=== PATIENT | female | born 1980 | race Caucasian/White ===

== ENCOUNTER 2017-04-26 18:44 | Inpatient (IN) | payer MEDICAID, OTHER ==
[~2017-04-26] VITALS: Ht 157.5 cm; Wt 95.0 kg
[~2017-04-26 18:44] MED LIST: CEPH500C2; HYDR-3927; IBUP-2029; NORE1TAB99; SULF-288
[2017-04-27] MEDS ORDERED: LABETALOL 5MG/ML SYR 20 MG/4 ML SYRINGE IV ONE (00:30)
[2017-04-27] MEDS ORDERED: MAGNESIUM 2 G PREMIX 50 ML IV ONE (00:30)
[2017-04-27 00:44] LABS: BASOPHILS % 0.6 % (0.0-2.0); EOSINOPHILS % 0.3 % (0.0-5.0); HEMATOCRIT. 34.8 % (36.0-48.0); HEMOGLOBIN. 11.9 g/dL (12.0-16.0); LYMPHOCYTES % 22.1 % (20.0-50.0); MEAN CORPUSCULAR HEMOGLOBIN 27.6 pg (28.0-32.0); MEAN CORPUSCULAR VOLUME 80.8 fL (81.0-99.0); MEAN PLATELET VOLUME 8.2 fl (7.4-10.4); MONOCYTES % 6.6 % (2.0-8.0); NEUTROPHILS % 70.4 % (40.0-76.0); PLATELET 278 x1000/uL (130-400); RED BLOOD CELL COUNT 4.31 mill/uL (4.2-5.4); RED CELL DISTRIBUTION WIDTH 14.6 % (11.6-14.6)
[2017-04-27 00:54] LABS: CHLORIDE 103 mEq/L (98-107)
[2017-04-27 01:04] LABS: CARBON DIOXIDE 25 mEq/L (21-32)
[2017-04-27 01:59] LABS: CLARITY URINE CLEAR (CLEAR); COLOR URINE YELLOW (YELLOW); GLUCOSE URINE NEGATIVE (NEGATIVE); KETONES URINE 3+ (NEGATIVE); LEUKOCYTE ESTERASE URINE NEGATIVE (NEGATIVE); NITRITE URINE NEGATIVE (NEGATIVE); OCCULT BLOOD URINE 1+ (NEGATIVE); PROTEIN URINE 1+ (NEGATIVE); SPECIFIC GRAVITY URINE 1.024 (1.005-1.030)
[2017-04-27] MEDS ORDERED: ACETAMINOPHEN 500MG TABLET PO ONE (06:15)
[2017-04-27] MEDS ORDERED: ACETAMINOPHEN 650MG/20.3ML UDC GT PRN (08:00)
[2017-04-27] MEDS ORDERED: ACETAMINOPHEN 650MG SUPP PR PRN (08:00)
[2017-04-27] MEDS ORDERED: IPRATROPIUM/ALBUTEROL 0.5-3(2.5)MG/3ML NEB INH PRN (08:00)
[2017-04-27] MEDS ORDERED: ONDANSETRON HCL 4MG/2ML VIAL IV PRN (08:00)
[2017-04-27] MEDS ORDERED: LABETALOL HCL 200MG TABLET PO SCH (09:30)
[2017-04-27 10:30] VITALS: BP 198/108
[2017-04-27] MEDS ORDERED: METHYLDOPA 250MG TABLET PO SCH (10:30)
[2017-04-27 11:32] VITALS: BP 159/85
[2017-04-27 11:52] LABS: *AMPHETAMINES SCREEN URINE NEGATIVE (NEGATIVE); *BARBITURATES SCREEN URINE NEGATIVE (NEGATIVE); *BENZODIAZEPINES SCREEN URINE NEGATIVE (NEGATIVE); *COCAINE SCREEN URINE NEGATIVE (NEGATIVE); CANNABINOID URINE SCREEN NEGATIVE (NEGATIVE); METHADONE URINE SCREEN NEGATIVE (NEGATIVE); OPIATES URINE SCREEN NEGATIVE (NEGATIVE); PHENCYCLIDINE URINE SCREEN NEGATIVE (NEGATIVE)
[2017-04-27 12:30] VITALS: BP 152/86
[2017-04-27] MEDS ORDERED: HYDRALAZINE HCL 50MG TABLET PO SCH (14:00)
[2017-04-27] MEDS: SODIUM CHLORIDE 0.9% INJ 3ML FLUSH IVF SCH ×2 (14:13→20:56)
[2017-04-27] MEDS: POTASSIUM CHLORIDE 20MEQ TABLET SR PO SCH ×2 (14:36→17:31)
[2017-04-27 14:40] VITALS: BP 154/88
[2017-04-27 14:50] LABS: CREATINE KINASE 21 IU/L (26-192); CREATINE KINASE MB FRACTION < 0.5 ng/mL (0.5-3.6); TROPONIN I < 0.02 ng/mL (0.00-0.04)
[2017-04-27 14:54] LABS: T4 FREE 1.17 ng/dL (0.76-1.46)
[2017-04-27 15:11] LABS: CLARITY URINE CLOUDY (CLEAR); COLOR URINE YELLOW (YELLOW); GLUCOSE URINE NEGATIVE (NEGATIVE); KETONES URINE 3+ (NEGATIVE); LEUKOCYTE ESTERASE URINE NEGATIVE (NEGATIVE); NITRITE URINE NEGATIVE (NEGATIVE); OCCULT BLOOD URINE 1+ (NEGATIVE); PROTEIN URINE NEGATIVE (NEGATIVE)
[2017-04-27 16:00] VITALS: BP 174/82
[2017-04-27] MEDS: HYDRALAZINE HCL 50MG TABLET PO PRN (17:31)
[2017-04-27] MEDS: ACETAMINOPHEN 325MG TABLET PO PRN (17:32)
[2017-04-27 20:00] VITALS: BP 155/86
[2017-04-27] MEDS: LABETALOL HCL 300MG TABLET PO SCH (20:51)
[2017-04-28] VITALS: BP 130/72
[2017-04-28 00:40] LABS: CREATINE KINASE 20 IU/L (26-192); CREATINE KINASE MB FRACTION < 0.5 ng/mL (0.5-3.6); TROPONIN I < 0.02 ng/mL (0.00-0.04)
[2017-04-28 04:00] VITALS: BP 128/62
[2017-04-28] MEDS: SODIUM CHLORIDE 0.9% INJ 3ML FLUSH IVF SCH ×3 (06:13→21:53)
[2017-04-28 07:38] LABS: BASOPHILS % 0.3 % (0.0-2.0); EOSINOPHILS % 0.6 % (0.0-5.0); HEMATOCRIT. 33.5 % (36.0-48.0); HEMOGLOBIN. 11.6 g/dL (12.0-16.0); LYMPHOCYTES % 26.6 % (20.0-50.0); MEAN CORPUSCULAR HEMOGLOBIN 28.1 pg (28.0-32.0); MEAN CORPUSCULAR VOLUME 81.5 fL (81.0-99.0); MONOCYTES % 6.5 % (2.0-8.0); PLATELET 278 x1000/uL (130-400); RED BLOOD CELL COUNT 4.11 mill/uL (4.2-5.4); RED CELL DISTRIBUTION WIDTH 15.3 % (11.6-14.6)
[2017-04-28 07:57] LABS: CARBON DIOXIDE 24 mEq/L (21-32); CHLORIDE 106 mEq/L (98-107); CREATINE KINASE 19 IU/L (26-192); HDL CHOLESTEROL 52 mg/dL (40-59); LDL CHOLESTEROL 93 mg/dL (5-100)
[2017-04-28 07:59] LABS: CREATINE KINASE MB FRACTION < 0.5 ng/mL (0.5-3.6); TROPONIN I < 0.02 ng/mL (0.00-0.04)
[2017-04-28 08:00] VITALS: BP 155/83
[2017-04-28] MEDS ORDERED: POTASSIUM CHLORIDE 20MEQ TABLET SR PO NR (08:39)
[2017-04-28] MEDS ORDERED: LABE300T PO (08:42)
[2017-04-28] MEDS ORDERED: CEPH-569 PO (08:43)
[2017-04-28] MEDS: LABETALOL HCL 300MG TABLET PO SCH (08:48)
[2017-04-28 11:54] VITALS: BP 149/74
[2017-04-28] MEDS: CEPHALEXIN 500MG CAPSULE PO SCH ×2 (13:43→21:53)
[2017-04-28 15:50] VITALS: BP 155/84
[2017-04-28 20:00] VITALS: BP 176/93
[2017-04-28 20:26] LABS: BASOPHILS % 0.3 % (0.0-2.0); EOSINOPHILS % 0.7 % (0.0-5.0); HEMATOCRIT. 33.2 % (36.0-48.0); HEMOGLOBIN. 11.4 g/dL (12.0-16.0); LYMPHOCYTES % 23.8 % (20.0-50.0); MEAN CORPUSCULAR HEMOGLOBIN 28.3 pg (28.0-32.0); MEAN CORPUSCULAR VOLUME 82.4 fL (81.0-99.0); MONOCYTES % 6.6 % (2.0-8.0); NEUTROPHILS % 68.6 % (40.0-76.0); PLATELET 273 x1000/uL (130-400); RED BLOOD CELL COUNT 4.03 mill/uL (4.2-5.4); RED CELL DISTRIBUTION WIDTH 15.3 % (11.6-14.6)
[2017-04-28] MEDS: LABETALOL HCL 200MG TABLET PO SCH (20:26)
[2017-04-28 21:03] LABS: HEPATITIS B SURFACE ANTIGEN NEGATIVE; RUBELLA IGG 242.7 IU/mL (4.99-10)
[2017-04-28 22:39] LABS: CLARITY URINE CLOUDY (CLEAR); COLOR URINE YELLOW (YELLOW); GLUCOSE URINE NEGATIVE (NEGATIVE); KETONES URINE NEGATIVE (NEGATIVE); LEUKOCYTE ESTERASE URINE TRACE (NEGATIVE); NITRITE URINE NEGATIVE (NEGATIVE); OCCULT BLOOD URINE TRACE (NEGATIVE); PROTEIN URINE NEGATIVE (NEGATIVE); SPECIFIC GRAVITY URINE 1.024 (1.005-1.030)
[2017-04-28 22:51] LABS: *AMPHETAMINES SCREEN URINE NEGATIVE (NEGATIVE); *BARBITURATES SCREEN URINE NEGATIVE (NEGATIVE); *BENZODIAZEPINES SCREEN URINE NEGATIVE (NEGATIVE); *COCAINE SCREEN URINE NEGATIVE (NEGATIVE); CANNABINOID URINE SCREEN NEGATIVE (NEGATIVE); METHADONE URINE SCREEN NEGATIVE (NEGATIVE); OPIATES URINE SCREEN NEGATIVE (NEGATIVE); PHENCYCLIDINE URINE SCREEN NEGATIVE (NEGATIVE)
[2017-04-29] VITALS (9 sets, daily range): BP systolic 112–197; BP diastolic 59–89
[2017-04-29] MEDS: CEPHALEXIN 500MG CAPSULE PO SCH ×2 (05:57→14:01)
[2017-04-29] MEDS: SODIUM CHLORIDE 0.9% INJ 3ML FLUSH IVF SCH ×2 (05:57→14:00)
[2017-04-29] MEDS ORDERED: FERROUS SULFATE 325MG TABLET PO SCH (07:40)
[2017-04-29] MEDS ORDERED: PRENATAL VIT/FE FUMARATE/FA TABLET PO SCH (09:00)
[2017-04-29] MEDS: LABETALOL HCL 200MG TABLET PO SCH (09:11)
[2017-04-29] MEDS: HYDRALAZINE HCL 50MG TABLET PO PRN (12:57)
[2017-04-29] MEDS: ACETAMINOPHEN 325MG TABLET PO PRN (12:58)
[2017-04-29] MEDS ORDERED: HYDR-4135 PO (17:15)
== END 2017-04-29 18:55 | disposition home or self-care (01) | DRG 566 ==
LOC: ER 18:44 → 7WST 04-27 01:46 → ENRESERV 04-27 08:48
PROVIDERS: ADMIT Family Medicine; ATTEND Family Medicine
DX: O10.911 Unspecified pre-existing hypertension complicating pregnancy, first trimester (principal); E44.1 Mild protein-calorie malnutrition; O23.41 Unspecified infection of urinary tract in pregnancy, first trimester; O99.281 Endocrine, nutritional and metabolic diseases complicating pregnancy, first trimester; O34.219 Maternal care for unspecified type scar from previous cesarean delivery; E87.6 Hypokalemia; D64.9 Anemia, unspecified; O99.011 Anemia complicating pregnancy, first trimester; Z90.49 Acquired absence of other specified parts of digestive tract; Z88.0 Allergy status to penicillin; O25.11 Malnutrition in pregnancy, first trimester
CPT/HCPCS: 36415; 76801; 80053; 80061; 80305; 81001; 81025; 82550; 82553; 83036; 83880; 84439; 84443; 84484; 85025; 85379; 86592; 86703; 86762; 86850; 86900; 87086; 87340; 93005; 93306; 96365; 96366; 96375; 99291; J3475; J3490